=== PATIENT | male | born 2000 | race African-American/Black ===

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

== ENCOUNTER 2020-12-11 21:11 | Emergency (ER) | payer OTHER ==
[~2020-12-11] VITALS: Ht 170.1 cm; Wt 90.7 kg
[2020-12-11 21:23] VITALS: BP 134/57
[2020-12-11] MEDS ORDERED: NAPROXEN250 MG PO (22:21)
== END 2020-12-11 22:32 | disposition home or self-care (01) ==
LOC: ED 21:11
DX: S93.401A Sprain of unspecified ligament of right ankle, initial encounter (principal); Z79.2 Long term (current) use of antibiotics; Z79.899 Other long term (current) drug therapy; X58.XXXA Exposure to other specified factors, initial encounter; Y93.89 Activity, other specified; Y92.89 Other specified places as the place of occurrence of the external cause; Y99.8 Other external cause status

== ENCOUNTER 2021-01-28 17:24 | Emergency (ER) | payer OTHER ==
[~2021-01-28] VITALS: Ht 170.1 cm; Wt 81.6 kg
[~2021-01-28 17:24] MED LIST changes: +NAPROXEN250 MG PO
[2021-01-28 17:26] VITALS: BP 107/69
== END 2021-01-28 21:30 | disposition left against medical advice (07) ==
LOC: ED 17:24
DX: R06.02 Shortness of breath (principal); Z53.21 Procedure and treatment not carried out due to patient leaving prior to being seen by health care provider

== ENCOUNTER 2021-01-29 07:31 | Emergency (ER) | payer OTHER ==
[~2021-01-29] VITALS: Ht 170.1 cm; Wt 81.6 kg
[2021-01-29 08:21] LABS: BASO % 0.4 % (0.0-1.0); EOS # 0.1 10*3/uL (0.0-0.4); EOS % 2.4 % (1.0-4.0); HEMATOCRIT 46.5 % (42.0-52.0); MEAN CORPUSCULAR HGB 28.8 pg (27.0-31.0); MEAN CORPUSCULAR HGB CONC 33.5 g/dl (33.0-37.0); MEAN PLATELET VOLUME 10.7 fl (9.6-12.3); MONO # 0.6 10*3/uL (0.1-1.0); MONO % 12.4 % (3.0-9.0); NEUT # 1.9 10*3/uL (2.3-7.9); NEUT % 41.4 % (47.0-73.0); PLATELET COUNT AUTOMATED 275 10*3/uL (130-400); RED BLOOD COUNT 5.41 10*6/uL (4.50-5.90); RED CELL DISTRI WIDTH 12.8 % (0-14.5); WHITE BLOOD COUNT 4.6 10*3/uL (4.8-10.8)
[2021-01-29 08:37] LABS: ALBUMIN 3.8 gm/dl (3.1-4.5); ALKALINE PHOSPHATASE 108 U/L (45-117); BUN 8 mg/dl (7-24); CHLORIDE 110 mmol/L (98-107); POTASSIUM 3.5 mmol/L (3.5-5.1); SGOT/AST 15 IU/L (3-35); SGPT/ALT 33 U/L (12-78); SODIUM 140 mmol/L (136-145); TOTAL PROTEIN 7.2 gm/dL (6.4-8.2)
[2021-01-29 14:30] VITALS: BP 110/69
== END 2021-01-29 14:30 | disposition home or self-care (01) ==
LOC: ED 07:31
PROVIDERS: Emergency Medicine
DX: U07.1 COVID-19 (principal); J12.82 Pneumonia due to coronavirus disease 2019

== ENCOUNTER → 2021-02-23 | Outpatient (CLI) | payer OTHER | END | disposition home or self-care (01) | LOC: COVID19 14:52 | PROVIDERS: ATTEND Podiatrist Foot & Ankle Surgery | DX: Z11.52 Encounter for screening for COVID-19 (principal) ==

== ENCOUNTER 2021-08-06 01:00 | Emergency (ER) | payer OTHER ==
[2021-08-06 01:07] VITALS: BP 119/70
== END 2021-08-06 03:30 | disposition home or self-care (01) ==
LOC: ED 01:00
DX: S00.33XA Contusion of nose, initial encounter (principal); W18.39XA Other fall on same level, initial encounter; Y93.89 Activity, other specified; Y92.89 Other specified places as the place of occurrence of the external cause; Y99.8 Other external cause status